=== PATIENT | female | born 1980 | race Caucasian/White ===

== ENCOUNTER 2018-01-26 15:26 | Emergency (ER) | payer OTHER ==
--- NOTE | 2018-01-26 15:28 | PDOC ---
History of Present Illness - General History Source: Patient Exam Limitations: No Limitations - History of Present Illness Initial Comments: 01/26/18 15:47 The patient is a 37 year old female with a significant PMH of breast cancer status post mastectomy and history of lymphedema on the right arm who presents to the emergency department with a large erythematous area on the right upper arm. The patient states she is on day 2 of doxycycline. The patient states she frequently has similar rashes which resolve after antibiotic use. Denies fever, chills, nausea, vomit, diarrhea and constipation. Allergies: amoxicillin, sulfa Social history: No reported alcohol, drug, or cigarette use. PCP:Dr. Foss <Ida Carroll - Last Filed: 01/26/18 15:45> <Davis Goldman - Last Filed: 01/26/18 15:55> - General Chief Complaint: Redness To Affected Area Stated Complaint: JUDE REDNESS Time Seen by Provider: 01/26/18 15:28 Past History <Ida Carroll - Last Filed: 01/26/18 15:45> - Past Medical History Anemia: No Asthma: No Cancer: Yes (right breast ca) Cardiac Disorders: No CVA: No COPD: No CHF: No Dementia: No Diabetes: No GI Disorders: No Disorders: Yes (kidney stones) HTN: No Hypercholesterolemia: No Kidney Stones: Yes Liver Disease: No Seizures: No Thyroid Disease: No - Surgical History Abdominal Surgery: No Appendectomy: No Cardiac Surgery: No Cholecystectomy: No Lung Surgery: No Neurologic Surgery: No Orthopedic Surgery: No - Immunization History Td Vaccination: No TDAP Vaccination: No Immunization Up to Date: No - Suicide/Smoking/Psychosocial Hx Smoking Status: Yes Smoking History: Former smoker Have you smoked in the past 12 months: Yes Number of Cigarettes Smoked Daily: 0 Hx Alcohol Use: Yes (social) Drug/Substance Use Hx: No Substance Use Type: Alcohol Hx Substance Use Treatment: No <Davis Goldman - Last Filed: 01/26/18 15:55> - Past Medical History Allergies/Adverse Reactions: Allergies Allergy/AdvReac Type Severity Reaction Status Date / Time amoxicillin Allergy Mild Rash Verified 01/26/18 15:40 cephalexin monohydrate Allergy Verified 01/26/18 15:40 [From Keflex] sulfamethoxazole Allergy Verified 01/26/18 15:40 [From Bactrim] trimethoprim [From Bactrim] Allergy Verified 01/26/18 15:40 Home Medications: Ambulatory Orders Clindamycin [Cleocin -] 150 mg PO Q8H #21 capsule 01/26/18 Clindamycin [Cleocin -] 150 mg PO Q8H #21 capsule 01/26/18 Doxycycline Hyclate 100 mg PO BID 01/26/18 Review of Systems - Review of Systems Able to Perform ROS?: Yes Comments:: 01/26/18 15:46 CONSTITUTIONAL: Absent: fever, no chills, no fatigue EYES: Absent: visual changes ENT: Absent: ear pain, no sore throat CARDIOVASCULAR: Absent: chest pain, no palpitations RESPIRATORY: Absent: cough, no SOB GI: Absent: abdominal pain, no nausea, no vomiting, no constipation, no diarrhea GENITOURINARY: Absent: dysuria, no frequency, no hematuria MUSKULOSKELETAL: Absent: back pain, no arthralgia, no myalgia SKIN: Absent: Present: Rash on the right arm. NEURO: Absent: headache <Ida Carroll - Last Filed: 01/26/18 15:45> *Physical Exam - Vital Signs Last Vital Signs Temp Pulse Resp BP Pulse Ox 99.5 F 96 H 20 121/79 100 01/26/18 15:27 01/26/18 15:27 01/26/18 15:27 01/26/18 15:27 01/26/18 15:27 - Physical Exam Comments: 01/26/18 15:46 GENERAL: Well-appearing, well-nourished. No apparent distress. HEENT: Normocephalic, atraumatic. PERRL, EOM intact. CARDIOVASCULAR: Normal S1, S2. Regular rate and rhythm. PULMONARY: Clear to auscultation bilaterally. ABDOMEN: Soft, non-distended, non-tender. EXTREMITIES: Normal ROM in all four extremities. No gross deformities. SKIN: Warm, dry. (+) Large area of erythema and warmth to the right upper arm with no tenderness. History of lymphedema on the right arm which is chronic. NEUROLOGICAL: No focal neurological deficits. = <Ida Carroll - Last Filed: 01/26/18 15:45> Progress Note - Progress Note Progress Note: Pt is with right arm, upper cellulitis. Will have pt continue on Doxycycline and add Clindamycin Dr. Foss paced pt on Doxycycline. Vitals stable. Pt is in agreement with plan If worsen will return for IV antibiotics <Davis Goldman - Last Filed: 01/26/18 15:55> Medical Decision Making - Medical Decision Making 01/26/18 15:49 Documentation prepared by Ida Carroll, acting as certified court/medical interpreter for Davis Goldman MD. <Ida Carroll - Last Filed: 01/26/18 15:45> *DC/Admit/Observation/Transfer <Ida Carroll - Last Filed: 01/26/18 15:45> - Discharge Dispostion Decision to Admit order: No <Davis Goldman - Last Filed: 01/26/18 15:55> Diagnosis at time of Disposition: Cellulitis of arm, right - Discharge Dispostion Disposition: HOME Condition at time of disposition: Good - Prescriptions Prescriptions: Clindamycin [Cleocin -] 150 mg PO Q8H #21 capsule - Patient Instructions Printed Discharge Instructions: DI for Cellulitis -- Adult Additional Instructions: Continue Doxycycline Add Clindamycin 150mg 3x/day for 7 days Tylenol, rest If worsen returnto ER for IV antibiotics and blood work
[2018-01-26 15:40] VITALS: BP 121/79; PULSE 96; TEMP 99.5; BMI 28.7
== END 2018-01-26 16:02 | disposition home or self-care (01) ==
LOC: FER 15:26
DX: L03.113 Cellulitis of right upper limb (principal); Z87.891 Personal history of nicotine dependence; Z85.3 Personal history of malignant neoplasm of breast; Z87.442 Personal history of urinary calculi
CPT/HCPCS: 99281-25

== ENCOUNTER 2021-12-08 11:32 | Emergency (ER) | payer BC ==
[2021-12-08 11:58] VITALS: BMI 28.3
[2021-12-08] MEDS ORDERED: BEBTELOVIMAB (EUA) 175 MG/2 ML VIAL IVPUSH ONE (12:06)
[2021-12-08 14:43] VITALS: BP 96/62; PULSE 91; TEMP 98.9
== END 2021-12-08 14:43 | disposition home or self-care (01) ==
LOC: JCOVINFU 11:32
PROC: 3E033GC Introduction of Other Therapeutic Substance into Peripheral Vein, Percutaneous Approach (ICD-10-PCS; principal; 2021-12-08)
DX: U07.1 COVID-19 (principal)
CPT/HCPCS: 99284-25; M0222; Q0222